=== PATIENT | female | born 1980 | race Caucasian/White ===

== ENCOUNTER 2016-12-24 11:04 | Emergency (ER) | payer MEDICAID ==
[~2016-12-24] VITALS: Ht 160 cm; Wt 77.6 kg
[2016-12-24 11:36] VITALS: BP 119/91; PULSE 92; RESP 16; TEMP 97.7; O2SAT 98
[2016-12-24] MEDS ORDERED: LORazepam 1 MG TABLET PO ONE (13:15)
[2016-12-24 15:40] VITALS: BP 110/62; PULSE 76; RESP 17; TEMP 98.1; O2SAT 96
== END 2016-12-24 15:40 | disposition home or self-care (01) ==
LOC: SED 11:04
DX: F41.9 Anxiety disorder, unspecified (principal)
CPT/HCPCS: 81025; 99284